=== PATIENT | female | born 1990 | race Hispanic/Latino ===

== ENCOUNTER 2017-01-02 17:15 | Outpatient (CLI) | payer OTHER ==
[2017-01-02 18:21] VITALS: BP 127/83
--- NOTE | 2017-01-03 09:25 | Ultrasound Report ---
BIOPHYSICAL PROFILE: 01/02/17 CLINICAL: Check well being FINDINGS: The biophysical profile was scored as followin - breathing movements 2 - movements 2 - posture and tone 2 - Qualitative amniotic fluid volume 8 - TOTAL SCORE OF POSSIBLE 8 Heart Rate (bpm) = 158 IMPRESSION: Normal study
== END 2017-01-02 18:37 | disposition home or self-care (01) ==
LOC: TRG 17:15
PROVIDERS: ATTEND Obstetrics & Gynecology
CPT/HCPCS: 59025; 76819

== ENCOUNTER 2017-01-25 17:22 | Inpatient (IN) | payer OTHER ==
[2017-01-25 18:17] LABS: Hematocrit 30.5 % (30.3-42.9); Hemoglobin 9.8 gm/dl (10.1-14.3); Mean Corpuscular HGB Conc 32 % (30-34); Mean Corpuscular Hemoglobin 23 pg (28-32); Mean Corpuscular Volume 72 fl (79-97); Platelet Count 238 K/mm3 (140-440); Red Blood Count 4.26 M/mm3 (3.65-5.03); Red Cell Distribution Width 17.3 % (13.2-15.2); White Blood Count 11.3 K/mm3 (4.5-11.0)
[2017-01-25 18:21] LABS: Bacteria,Urine 1+ /HPF (Negative); Bilirubin,Urine NEG (Negative); Blood,Urine SM (Negative); Ketones,Urine NEG (Negative); Leukocyte Esterase,Urine NEG (Negative); Mucus,Urine FEW /HPF; Nitrite,Urine NEG (Negative); Protein,Urine <15 mg/dL mg/dL (Negative); Urobilinogen,Urine < 2.0 mg/dL (<2.0)
[2017-01-25] MEDS ORDERED: REGLAN IV ONE (18:21)
[2017-01-25] MEDS ORDERED: BICITRA PO ONE (18:21)
[2017-01-25] MEDS ORDERED: PEPCID IV ONE ×2 (18:21→20:25)
[2017-01-25 18:41] LABS: Alanine Aminotransferase 11 units/L (7-56); Lactate Dehydrogenase 193 units/L (91-180)
[2017-01-25] MEDS ORDERED: PITOCin/NS 20 UNIT/1000ML DRIP 20 UNITS/1,000 ML BAG IV SCH (19:00)
[2017-01-25] MEDS ORDERED: ANCEF/STERILE WATER 2 GM/20 ML 2 GM/20 ML SYRINGE IV NR (19:00)
--- NOTE | 2017-01-25 19:40 | Anesthesia Consultation ---
Anesthesia Consult and Med Hx Date of service: 01/25/17 - Airway Anesthetic Teeth Evaluation: Good ROM Head & Neck: Adequate Mental/Hyoid Distance: Adequate Mallampati Class: Class II Intubation Access Assessment: Probably Good - Pulmonary Exam CTA: Yes - Cardiac Exam Cardiac Exam: RRR - Pre-Operative Health Status ASA Pre-Surgery Classification: ASA2 Proposed Anesthetic Plan: Spinal - Pulmonary Hx Asthma: No COPD: No Hx Pneumonia: No - Cardiovascular System Hx Hypertension: No - Central Nervous System Hx Seizures: No Hx Psychiatric Problems: No - Endocrine Hx Renal Disease: No Hx End Stage Renal Disease: No Hx Hypothyroidism: No Hx Hyperthyroidism: No - Hematic Hx Anemia: No Hx Sickle Cell Disease: No - Other Systems Hx Alcohol Use: No Hx Obesity: Yes (BMI 41.1)
--- NOTE | 2017-01-25 19:41 | Anesthesia Day of Surgery ---
Anesthesia Day of Surgery - Day of Surgery Patient Examined: Yes Patient H&P Reviewed: Yes Patient is NPO: Yes
[2017-01-25] MEDS: LACTATED RINGERS 1,000 ML IV SCH ×2 (19:45→20:13)
--- NOTE | 2017-01-25 19:48 | History and Physical Report ---
History of Present Illness Date of examination: 01/25/17 Chief complaint: Gestational HTN, h/o Preeclampsia History of present illness: Past History : 2 Term Births: 0 Premature Births: 1 Living Children: 1 Para: 1 Mult. Births: 0 Prev : 1 Prev. attempt? 0 Aborta: 0 Elect. Ab: 0 Spont. Ab: 0 Ectopics: 0 # 1 Delivery date: 02/01/2016 Weeks Gestation: 34 Delivery type: Anesthesia type: epidural Delivery location: [facility] Sex: g weight: 3.19 Comments: intrauterine growth restriction, pre-eclampsia/eclampsia, non- reassuring FHT"s Past Medical History: Reviewed history from 08/30/2015 and no changes required: Negative Past Medical History Past Surgical History: Reviewed history from 02/01/2016 and no changes required: Breast Augmentation: 2011 (02/01/2016) Past Medical History Abnormal PAP: negative ALIX Exposure: negative Infertility: negative Uterine Anomaly: negative Uterine Surgery (not C/S): negative Other Gynecologic Problems: negative Social Hx: Patient is no ETOH/Drugs/Smoking Smoking History: Patient has never smoked. no etoh or drugs Infection History Hx of STD: none HIV Risk Eval: no Hepatitis B Risk Eval: low risk Personal hx. of genital herpes: no Partner hx. of genital herpes: no Rash, Viral, or Febrile illness since last LMP? no Varicella/Chicken Pox Status: Previous Disease TB Risk: no Genetic History Congenital Heart Defect: Mom: no Dad: no Delroy Disease: Mom: no Dad: no Thalassemia Mom: no Dad: no Neural Tube Defect Mom: no Dad: no Down's Syndrome Mom: no Dad: no Chato-Sachs Mom: no Dad: no Sickle Cell Disease/Trait Mom: no Dad: no Hemophilia Mom: no Dad: no Muscular Dystrophy Mom: no Dad: no Cystic Fibrosis Mom: no Dad: no [place] Chorea Mom: no Dad: no Mental Retardation Mom: no Dad: no Fragile X Mom: no Dad: no Other Genetic/Chromosomal Disorder Mom: no Dad: no Child w/other defect Mom: no Dad: no Enviromental Exposures Xray Exposure: no Medication, drug, or alcohol use since LMP: no Chemical/Other Exposure: no Exposure to Cat Liter: yes Hx of Parvovirus (Fifth Disease): no Occupational Exposure to Children: none Comments: no cat litter Active Medications (reviewed today): PROCARDIA XL 30 MG ORAL [id number] (NIFEDIPINE) AMOXICILLIN 500 MG CAPS (AMOXICILLIN) 1 po q 8hrs Current Allergies (reviewed today): No known allergies Past History - Obstetrical History Expected Date of Delivery: 02/05/17 Actual Gestation: 38 Week(s) 3 Day(s) : 2 Medications and Allergies Allergies Allergy/AdvReac Type Severity Reaction Status Date / Time No Known Allergies Allergy Verified 01/01/16 10:08 Home Medications Medication Instructions Recorded Confirmed Last Taken Type Lidocain2.5%/Prilocai2.5% [Emla] 5 gm TP PRN #1 tube 01/01/16 01/28/16 01/01/16 21:00 Rx Nitrofurantoin [place]/M-Cryst 100 mg PO Q12HR #10 capsule 01/01/16 01/28/16 21:00 Rx [Macrobid] 100 mg Vitamins 1 tab PO DAILY 01/01/16 01/28/16 Unknown History Ibuprofen [Motrin 800 MG tab] 800 mg PO TID PRN #30 tablet 02/01/16 Unknown Rx oxyCODONE /ACETAMINOPHEN [Percocet 1 - 2 tab PO Q4HR PRN #30 tablet 02/01/16 Unknown Rx 5/325 mg] NIFEdipine XL [Procardia Xl] 30 mg PO QDAY #30 tablet 02/02/16 Unknown Rx Active Meds: Active Medications Cefazolin Sodium (Ancef/Sterile Water 2 Gm/20 Ml) 2 gm in 20 mls @ 80 mls/hr IV PREOP NR PRN Reason: Protocol Stop: 01/25/17 23:59 Lactated Ringer's (Lactated Ringers) 1,000 mls @ 2,250 mls/hr IV PREOP KAIDEN Stop: 01/26/17 19:27 Oxytocin/Sodium Chloride (Pitocin/Ns 20 Unit/1000ml Drip) 20 units in 1,000 mls @ 0 mls/hr IV TITR KAIDEN PRN Reason: As Directed Review of Systems All systems: negative Neurological: other (visual changes) - Vital Signs Vital signs: Vital Signs Pulse BP 109 H 139/87 01/25/17 17:44 01/25/17 17:44 Temp Pulse Resp BP Pulse Ox 115 H 134/95 01/25/17 19:31 01/25/17 19:31 - Physical Exam Breasts: Positive: deferred Cardiovascular: Other (tachycardia) Abdomen: Positive: normal appearance, soft Uterus: Positive: enlarged Deep Tendon Reflex Grade: Normal +2 - Obstetrical FHR: category 1 Uterine Contraction Monitor Mode: External Results Result Diagrams: 01/25/17 17:55 01/25/17 17:55 Abnormal lab results 01/25/17 01/25/17 Range/Units 17:55 17:55 WBC 11.3 H (4.5-11.0) K/mm3 Hgb 9.8 L (10.1-14.3) gm/dl MCV 72 L (79-97) fl MCH 23 L (28-32) pg RDW 17.3 H (13.2-15.2) % Creatinine 0.5 L (0.7-1.2) mg/dL Lactate Dehydrogenase 193 H (91-180) units/L All other labs normal. Assessment and Plan - Patient Problems (1) 38 weeks gestation of Current Visit: Yes Status: Acute (2) Gestational hypertension Current Visit: Yes Status: Acute Plan to address problem: Other then elevated BP's no other classic signs/symptoms of preeclampsia. (3) Group B streptococcal carriage complicating Current Visit: No Status: Chronic (4) Maternal care for scar from previous delivery Current Visit: Yes Status: Acute Qualifiers: Previous delivery type: low transverse Qualified Code(s): O34.211 - Maternal care for low transverse scar from previous delivery Plan to address problem: Diagnosis and plan of care explained. Questions answered, consents were reviewed and signed. She declines sterilization. She voiced understanding and desires to proceed with delivery by c/s for [facility].
[2017-01-25] MEDS ORDERED: MORPHINE ONE (19:53)
[2017-01-25] MEDS ORDERED: REGLAN ONE (20:24)
[2017-01-25] MEDS ORDERED: BICITRA ONE (20:24)
[2017-01-25] MEDS ORDERED: ANCEF/STERILE WATER 2 GM/20 ML IV ONE (20:37)
[2017-01-25] MEDS ORDERED: WATER FOR IRRIG STERILE IR ONE (20:50)
[2017-01-25] MEDS ORDERED: NACL 0.9% IR ONE (20:50)
[2017-01-25] MEDS ORDERED: ZOFRAN ONE (21:12)
[2017-01-25] MEDS ORDERED: TORADOL ONE (22:02)
[2017-01-25] MEDS ORDERED: NEO SYNEPHRINE/NS Syringe(OR USE) IV ONE (22:05)
[2017-01-25] MEDS ORDERED: ZOFRAN IV PRN (22:18)
[2017-01-25] MEDS ORDERED: NARCAN 0.4 MG/1 ML IV PRN (22:18)
--- NOTE | 2017-01-25 22:18 | Post Anesthesia Evaluation ---
- Post Anesthesia Evaluation Patient Participated: Yes Airway Patent: Yes Stable Respiratory Function: Yes Nausea/Vomiting: No Temp > 96.8F: Yes Pain Manageable: Yes Adequeate Hydration: Yes Anesthesia Complications: No Block Receding Appropriately: Yes Patient on Ventilator: No
[2017-01-25] MEDS ORDERED: TORADOL IV PRN (22:20)
--- NOTE | 2017-01-25 22:22 | Operative Report ---
Operative Report Operative Report: Date: 01/25/2017 Preoperative diagnosis: 1. Intrauterine at 38 weeks gestation 2. Gestational hypertension 3. Previous delivery 4. Uterine contractions Postoperative diagnosis: 1. Intrauterine at 38 weeks gestation 2. Gestational hypertension 3. Previous delivery 4. Uterine contractions Procedure: Low uterine transverse incision for delivery Surgeon: Natalie Dumont MD Blood Donor Recruiter Supervisor: Audrey Foss Anesthesia: Epidural Anesthesiologist: Bernardo Denise M.D. Estimated blood loss: 500 mL Urine out: 100 mL Findings: Live born male infant. Weight 7 lbs. 4 oz. Apgars 8 and at 1 minute and 9 at 9 minutes. Grossly normal uterus. tubes and ovaries. Procedure: After risk, benefits, complications, consequences and alternatives for this procedure were discussed with patient and consents were reviewed and signed, she was taken to the OR where epidural anesthesia was bolused. She was then placed in the left lateral tilt position, and prepped and draped in the usual sterile fashion. Timeout was performed, and an appropriate level of anesthesia was noted, a Pfannenstiel incision was made and extended to the fascia which was incised and extended in the lateral directions. The overlying fascia was sharply dissected away from the underlying rectus muscles in the superior and inferior directions. The midline was entered bluntly. The vesicouterine fold was incised and with blunt dissection the bladder flap was created. The lower uterine segment was noted to be very thin. A transverse incision was made in the lower uterine segment and extended in superiolateral direction with finger fractionation. Clear fluid was noted. The was delivered from cephalic position. Mouth and nose were bulb suctioned. Spontaneous cry and excellent tone were noted. Cord was doubly clamped and cut. The was given to /resuscitation team present. The placenta was manually extracted. The uterus was then exteriorized and cleared of any further products of conception or placental tissue. The incision was reapproximated using 0 Vicryl in a running interlocking stitch. The incision was reinforced with 0 Vicryl in interrupted [id number] fashion. Then 3-0 Vicryl was used for further hemostasis. Grossly normal uterus, tubes and ovaries were noted. Once hemostasis was noted , the uterus was allowed back into the pelvic cavity. The pelvis was irrigated with warm normal saline. Again hemostasis was noted . Tisseel and Surgicel were applied for further hemostasis. Interceed was then placed to prevent adhesions. Then attention was turned to the rectus muscles. The rectus muscles were reapproximated using 0 Vicryl in interrupted fashion. Once hemostasis was noted, the fascia was reapproximated using 0 Vicryl and some running stitch. Once hemostasis was noted skin incision was reapproximated using 4-0 Vicryl on a Bienvenido needle in a subcuticular manner. Counts were correct 3. Patient tolerated procedure well state recovery room in stable condition.
[2017-01-25] MEDS ORDERED: SODIUM CHLORIDE FLUSH SYRINGE 10 ML IV NR (23:00)
[2017-01-26] MEDS ORDERED: TYLENOL PO PRN (00:11)
[2017-01-26] MEDS ORDERED: MORPHINE IV PRN (00:11)
[2017-01-26] MEDS ORDERED: TYLENOL PR PRN (00:11)
[2017-01-26] MEDS ORDERED: PHENERGAN PR PRN (00:11)
[2017-01-26] MEDS ORDERED: LANSINOH TP PRN (00:11)
[2017-01-26] MEDS ORDERED: ANCEF/NS 1 GM/50 ML 1 GM/50 ML BAG IV SCH (00:11)
[2017-01-26] MEDS ORDERED: MYLICON PO PRN (00:11)
[2017-01-26] MEDS ORDERED: NARCAN 0.4 MG/1 ML IV PRN (00:11)
[2017-01-26] MEDS ORDERED: SODIUM CHLORIDE FLUSH SYRINGE 10 ML IV NR (00:11)
[2017-01-26] MEDS ORDERED: TUCKS PAD TP PRN (00:11)
[2017-01-26] MEDS ORDERED: PITOCin/NS 20 UNIT/1000ML DRIP 20 UNITS/1,000 ML BAG IV SCH (00:11)
[2017-01-26] MEDS ORDERED: BENADRYL PO PRN (00:45)
[2017-01-26] MEDS ORDERED: BENADRYL IV PRN (01:03)
[2017-01-26] MEDS: MORPHINE IV PRN ×2 (01:07→05:30)
[2017-01-26] MEDS: ceFAZolin 1 GM in NACL 0.9% 20 ML IV SCH ×2 (04:06→12:31)
[2017-01-26] MEDS: D5LR 1,000 ML IV SCH ×2 (05:40→08:58)
[2017-01-26] MEDS ORDERED: BOOSTRIX IM ONE (06:00)
[2017-01-26] MEDS ORDERED: NACL 0.9% 500 ML 500 ML IV ONE (06:57)
--- NOTE | 2017-01-26 06:57 | Event Note ---
Date: 01/26/17 received call from RN that urine output is decreased to 24ml over the last 7 hours. RN also reports patient has not been drinking d/t vomiting large amounts of fluid. Patient has since received zofran and is feeling better. VSSAF, advised nurse to give 500ml bolus of NS and monitor output.
--- NOTE | 2017-01-26 08:45 | Progress Note ---
Assessment and Plan - Patient Problems (1) Status post repeat low transverse section Current Visit: Yes Status: Acute Plan to address problem: -ROUTINE POST OP CARE -ADAT -CLOSELY MONITOR UOP -AMBULATION THIS PM (2) 38 weeks gestation of Current Visit: Yes Status: Acute (3) Gestational hypertension Current Visit: Yes Status: Acute Plan to address problem: BP CURRENTLY NORMAL -CLOSELY MONITOR Subjective - Subjective Date of service: 01/26/17 Principal diagnosis: POD #1 S/P RLTCS WITH BTL 2)DECREASED UOP Interval history: PT DOING WELL. NO KEN OR BLURRY VISION. SHE DID HAVE NAUSEA AND EMESIS BUT CURRENTLY IS W/O EITHER. URINE IN [place] IS ABOUT 100CC THAT APPEARS TO BE FROM 7AM TO 8AM. I HAVE D/W RN CHANGING TO [facility] FOR WE CAN GET ACCURATE ASSESSMENT OF THE UOP. PT OTHERWISE IS DOING WELL. Patient reports: appetite normal, pain well controlled : doing well Objective - Vital Signs Latest vital signs: Vital Signs Temp Pulse Resp BP BP Pulse Ox 01/26/17 05:25 98.6 F 89 20 115/65 01/26/17 00:04 99.3 F 101 H 18 132/74 01/25/17 23:15 91 H 27 H 134/76 95 01/25/17 23:10 91 H 17 127/74 97 01/25/17 23:05 90 19 125/74 96 01/25/17 23:00 88 19 129/68 96 01/25/17 22:55 91 H 22 131/71 97 01/25/17 22:50 81 19 131/76 98 01/25/17 22:45 79 21 130/70 98 01/25/17 22:40 85 14 134/77 98 01/25/17 22:36 95 H 18 127/77 98 01/25/17 22:30 85 15 119/86 99 01/25/17 22:25 95 H 11 L 113/79 98 01/25/17 22:20 99 H 14 118/69 99 01/25/17 22:15 100 H 15 99 01/25/17 22:14 100 H 17 98 01/25/17 19:31 115 H 134/95 01/25/17 19:14 118 H 159/91 01/25/17 18:59 112 H 140/84 01/25/17 18:44 121 H 141/86 01/25/17 18:29 116 H 143/92 01/25/17 18:14 105 H 148/95 01/25/17 17:59 110 H 142/94 01/25/17 17:44 109 H 139/87 Intake and Output 01/25/17 01/26/17 01/26/17 22:59 06:59 14:59 Intake Total 2800 100 Output Total 100 1120 Balance 2700 -1020 Intake: IV 2800 Lactated Ringers 1,000 ml 1000 @ 2250 mls/hr IV PREOP [facility] Rx#:[id number] Intake, Free Water 100 Output: Urine 100 220 Indwelling Catheter 170 Uretheral (King) 50 Emesis 900 Other: Total, Output Amount 50 Weight 92.533 kg Estimated Blood Loss 500 - Exam Cardiovascular: Present: Normal S1, Normal S2 Lungs: Present: Clear to auscultation, Normal air movement Abdomen: Present: normal appearance, soft, normal bowel sounds, other (SOME EDEMA OF LOWER PANNUS AREA WITH SOME ERYTHEMA NOTED). Absent: distention, tenderness, guarding Uterus: Present: normal, firm, fundal height at umbilicus Extremities: Present: normal, edema (DEPENDENT B/L). Absent: tenderness Deep Tendon Reflex Grade: Normal +2 Incision: Present: normal, dry, intact, dressed - Labs Labs: Abnormal lab results 01/25/17 01/25/17 Range/Units 17:55 17:55 WBC 11.3 H (4.5-11.0) K/mm3 Hgb 9.8 L (10.1-14.3) gm/dl MCV 72 L (79-97) fl MCH 23 L (28-32) pg RDW 17.3 H (13.2-15.2) % Creatinine 0.5 L (0.7-1.2) mg/dL Lactate Dehydrogenase 193 H (91-180) units/L
[2017-01-26 11:08] LABS: Hematocrit 25.8 % (30.3-42.9); Hemoglobin 8.3 gm/dl (10.1-14.3)
[2017-01-26] MEDS: PERCOCET 5/325 PO PRN ×3 (11:24→23:47)
[2017-01-26] MEDS: MOTRIN PO PRN ×2 (11:25→17:37)
[2017-01-26] MEDS ORDERED: Fluarix Quad 2017-2018(36 MOS+ IM ONE (12:00)
[2017-01-26] MEDS: MILK OF MAGNESIA PO PRN (21:34)
[2017-01-27] MEDS: PERCOCET 5/325 PO PRN ×4 (05:14→23:27)
--- NOTE | 2017-01-27 08:11 | Progress Note ---
Assessment and Plan patient doing well, no complaints. denies KEN, visual changes or epigastric pain. Lochia scant, VSSAF, H&H stable, incision dry and intact - small amount of bruising noted above incision. Peel d'orange skin noted on panis above incision (present prior to delivery), pt is working with for breast feeding. Continue postop pathway and anticipate d/c home tomorrow if remains stable. - Patient Problems (1) delivery delivered Current Visit: Yes Status: Acute Subjective - Subjective Date of service: 01/27/17 Principal diagnosis: postop day # 2 s/p repeat c/s w/ BTL Patient reports: appetite normal, voiding normally, pain well controlled, flatus , ambulating normally, no dizzy ambulation, no nauseated : doing well, nursing well Objective - Vital Signs Latest vital signs: Vital Signs Temp Pulse Resp BP BP Pulse Ox 01/26/17 22:57 98.6 F 102 H 22 123/72 96 01/26/17 16:42 97.6 F 94 H 20 124/72 01/26/17 12:35 98 F 89 20 125/71 01/26/17 08:33 98 F 83 20 104/73 Intake and Output 01/26/17 01/27/17 01/27/17 23:59 07:59 15:59 Intake Total 1640.833 240 Output Total 800 Balance 840.833 240 Intake: IV 920.833 D5lr 1,000 ml @ 125 mls/ 920.833 hr IV DIRECT KAIDEN Rx#: [id number] Oral 360 240 Intake, Free Water 360 Output: Urine 800 Void 800 Other: Total, Intake Amount 120 240 Total, Output Amount 400 # Voids Void 2 1 - Exam Breasts: Present: normal, Cardiovascular: Present: Regular rate Lungs: Present: Clear to auscultation, Normal air movement Abdomen: Present: normal appearance, soft, other (Peel d'orange noted on panis above incision. incision dry and intact. also noted prior to delivery) Vulva: both: normal Uterus: Present: normal, firm, fundal height at umbilicus Extremities: Present: normal Deep Tendon Reflex Grade: Normal +2 Incision: Present: normal, dry, intact - Labs Labs: Abnormal lab results 01/26/17 Range/Units 10:39 Hgb 8.3 L (10.1-14.3) gm/dl Hct 25.8 L (30.3-42.9) %
[2017-01-27] MEDS: MOTRIN PO PRN ×3 (09:02→23:27)
--- NOTE | 2017-01-27 10:00 | Progress Note ---
Subjective Date of service: 01/26/17 Principal diagnosis: postop day # 2 s/p repeat c/s w/ BTL Interval history: 1st POD after Patient is in the bed, comfortable. Pain is well controlled with pain meds. Ambulated well. No residual neurological deficit. Pruritus is mostly under control. No anesthesia complications. Objective - Constitutional Vitals: Vital Signs - 12hr 01/26/17 22:57 Temperature 98.6 F Pulse Rate 102 H Respiratory 22 Rate Blood Pressure 123/72 O2 Sat by Pulse 96 Oximetry - Labs CBC & Chem 7: 01/26/17 10:39 01/25/17 17:55 Labs: Abnormal lab results 01/26/17 Range/Units 10:39 Hgb 8.3 L (10.1-14.3) gm/dl Hct 25.8 L (30.3-42.9) %
[2017-01-27] MEDS: MILK OF MAGNESIA PO PRN (20:19)
[2017-01-28] MEDS: PERCOCET 5/325 PO PRN ×2 (06:36→13:01)
[2017-01-28] MEDS: MOTRIN PO PRN ×2 (06:36→13:02)
--- NOTE | 2017-01-28 07:12 | Discharge Summary ---
Providers - Providers Date of Admission: 01/25/17 20:52 Date of discharge: 01/28/17 (pt desires d/c) Attending physician: EVANGELINA BUTLER 01/26/17 00:11 Consult to Barrel Dedenting Machine Operator [CONS] Routine Reason For Exam: Primary care physician: EVANGELINA BUTLER Hospitalization Reason for admission: section Delivery: Procedure: repeat low transverse Episiotomy: none Laceration: none Incision: normal, dry, intact Other procedures: none complications: none Discharge diagnosis: IUP at term delivered [place] baby: male Hospital course: uncomplicated section repeat Pt resting No c/o voiced BP 130/90 Repeat PIH labs ordered with a urine.Pt denies KEN, blurred vision, chest pain. FF below umb Lochia scant Incision D&I H& H chronic anemia No s/sx of anemia Doing well s/p repeat c/s Discharge pending lab results P: d/c today if stable Will consult with RX provided Pt will RTO Thursday for a BP check and will neal her postop visit and circ in 1 week. Condition at discharge: Good Disposition: DC-01 TO HOME OR SELFCARE - Discharge Diagnoses (1) delivery delivered Status: Acute Comment: RTO one week for postop care Plan - Discharge Medications Prescriptions: Ferrous Sulfate [Feosol 325 MG tab] 325 mg PO BID #90 tablet Ibuprofen [Motrin 800 MG tab] 800 mg PO TID PRN #30 tablet PRN Reason: Pain Lidocain2.5%/Prilocai2.5% [Emla] 5 gm TP ONCE #1 tube oxyCODONE /ACETAMINOPHEN [Percocet 5/325 mg] 1 - 2 tab PO Q4HR PRN #30 tablet PRN Reason: Pain - Provider Discharge Summary Activity: routine, no sex for 6 weeks, no heavy lifting 4 weeks, no strenuous exercise Diet: routine Instructions: routine Additional instructions: [] Smoking cessation referral if applicable(refer to patient education folder for contact #) [] Refer to [facility] Center Booklet Call your doctor immediately for: * Fever > 100.5 * Heavy vaginal bleeding ( >1 pad per hour) * Severe persistent headache * Shortness of breath * Reddened, hot, painful area to leg or breast * Drainage or odor from incision. * Keep incision clean and dry at all times and follow doctor's instructions regarding bathing/showering - Follow up plan Follow up: EVANGELINA BUTLER MD [Primary Care Provider] - 7 Days (Congratulations! Please call [phone] to schedule your postoperative visit in 1 week. Take medications as prescribed. Bring EMLA cream with you to your son's circumcision appointment. Come to [place] office Thursday morning for blood pressure check. Call with headache unrelieved with Tylenol, blurred vision, chest pain. Call with any concerns)
[2017-01-28 07:36] LABS: Hematocrit 27.2 % (30.3-42.9); Hemoglobin 8.6 gm/dl (10.1-14.3); Mean Corpuscular HGB Conc 32 % (30-34); Mean Corpuscular Volume 73 fl (79-97); Platelet Count 219 K/mm3 (140-440); Red Blood Count 3.71 M/mm3 (3.65-5.03); Red Cell Distribution Width 17.1 % (13.2-15.2); White Blood Count 10.3 K/mm3 (4.5-11.0)
[2017-01-28 07:38] LABS: Mean Corpuscular Hemoglobin 23 pg (28-32)
[2017-01-28 08:04] LABS: Alanine Aminotransferase 24 units/L (7-56); Lactate Dehydrogenase 201 units/L (91-180); Uric Acid 5.6 mg/dL (3.5-7.6)
[2017-01-28 09:27] LABS: Bilirubin,Urine Negative (Negative); Ketones,Urine Negative (Negative)
[2017-01-28 09:28] LABS: Blood,Urine Negative (Negative); Urobilinogen,Urine < 2.0 mg/dL (<2.0)
[2017-01-28 09:29] LABS: Leukocyte Esterase,Urine Negative (Negative); Nitrite,Urine Negative (Negative)
[2017-01-28 09:49] LABS: Bacteria,Urine 2+ /HPF (Negative); Mucus,Urine 1+ /HPF
[2017-01-28 10:00] LABS: RBC,Urine > 182.0 /HPF (0.0-6.0); WBC,Urine > 182.0 /HPF (0.0-6.0)
[2017-01-28 10:08] VITALS: BP 134/89
== END 2017-01-28 16:50 | disposition home or self-care (01) | DRG 765 ==
LOC: TRG 17:22 → APU 20:52 → OB 23:38
PROVIDERS: ADMIT Obstetrics & Gynecology; ATTEND Obstetrics & Gynecology
PROC: 10D00Z1 Extraction of Products of Conception, Low, Open Approach (ICD-10-PCS; principal; 2017-01-25)
PROC: 3E0234Z Introduction of Serum, Toxoid and Vaccine into Muscle, Percutaneous Approach (ICD-10-PCS; 2017-01-26)
DX: O34.211 Maternal care for low transverse scar from previous cesarean delivery (principal); Z68.41 Body mass index [BMI] 40.0-44.9, adult; Z3A.38 38 weeks gestation of pregnancy; Z37.0 Single live birth; Z23 Encounter for immunization; O13.4 Gestational [pregnancy-induced] hypertension without significant proteinuria, complicating childbirth; O99.824 Streptococcus B carrier state complicating childbirth; O62.9 Abnormality of forces of labor, unspecified; O99.02 Anemia complicating childbirth; D64.9 Anemia, unspecified; O26.893 Other specified pregnancy related conditions, third trimester; O99.214 Obesity complicating childbirth; E66.9 Obesity, unspecified
CPT/HCPCS: 36415; 81001; 82565; 83615; 84450; 84460; 84550; 85014; 85018; 85027; 86850; 86900; 86901; 90686; 99211; C1765; C9250; G0463; J0690; J1885; J2270; J2370; J2405; J2590; J2765; J7040; J7120; J7121